=== PATIENT | female | born 1960 | race American Indian/Alaskan Native ===

== ENCOUNTER 2017-06-01 07:40 | Emergency (ER) | payer BC ==
[2017-06-01 08:10] VITALS: RESP 18; TEMP 98; O2SAT 100
--- NOTE | 2017-06-01 09:39 | ED PDOC ---
Arrival/HPI - General Chief Complaint: Allergic Reaction Time Seen by Provider: 06/01/17 08:28 Historian: Patient - History of Present Illness Narrative History of Present Illness (Text): 06/01/17 09:35 A 56 year old female, with no significant past medical history, presents to the emergency department complaining of swelling to right-side forehead and itchiness for 2-3 days. Patient reports 5 days ago, she used a hair dye, a different color than she normally uses. The next day she was normal but the following day, she began experiencing itchiness and redness of her scalp. 2 days ago she began to develop swelling to her right-side forehead. Patient denies of any fever, vision changes, nasal congestion, anaphylaxis, shortness of breath, or any other complaints. No PMD Time/Duration: < week (2-3 days) Symptom Onset: Sudden Symptom Course: Unchanged Activities at Onset: Rest, Light Past Medical History - Provider Review Nursing Documentation Reviewed: Yes - Infectious Disease Hx of Infectious Diseases: None - Reproductive Menopause: Yes - Psychiatric Hx Substance Use: No - Anesthesia Hx Anesthesia: No Family/Social History - Physician Review Nursing Documentation Reviewed: Yes Family/Social History: No Known Family HX Smoking Status: Current Some Days Smoker Hx Alcohol Use: Yes Frequency of alcohol use: Socially Hx Substance Use: No Allergies/Home Meds Allergies/Adverse Reactions: Allergies No Known Allergies Allergy (Verified 06/01/17 08:10) Review of Systems - Physician Review All systems were reviewed & negative as marked: Yes - Review of Systems Constitutional: absent: Fevers Eyes: absent: Vision Changes ENT: Other (no throat closing sensation). absent: Sinus Congestion Respiratory: absent: SOB Skin: Pruritis (scalp and right-side forehead), Other (erythema of scalp, swelling of right forehead) Physical Exam Vital Signs Reviewed: Yes Vital Signs Temp Pulse Resp BP Pulse Ox 06/01/17 09:20 75 18 140/82 100 06/01/17 08:06 98 F 78 18 144/84 100 Temperature: Afebrile Blood Pressure: Normal Pulse: Regular Respiratory Rate: Normal Appearance: Positive for: Well-Appearing Pain Distress: None Mental Status: Positive for: Alert and Oriented X 3 - Systems Exam Head: Present: Swelling (right-side forhead), Other (urticarial rash right-side forhead and scalp) Pupils: Present: PERRL Extroacular Muscles: Present: EOMI Conjunctiva: Present: Normal Mouth: Present: Moist Mucous Membranes Neck: Present: Normal Range of Motion Respiratory/Chest: Present: Clear to Auscultation, Good Air Exchange. No: Respiratory Distress, Accessory Muscle Use Cardiovascular: Present: Regular Rate and Rhythm, Normal S1, S2. No: Murmurs Abdomen: Present: Normal Bowel Sounds. No: Tenderness, Distention, Peritoneal Signs Back: Present: Normal Inspection Upper Extremity: Present: Normal Inspection. No: Cyanosis, Edema Lower Extremity: Present: Normal Inspection. No: Edema Neurological: Present: GCS=15, CN II-XII Intact, Speech Normal Skin: Present: Warm, Dry, Normal Color. No: Rashes Psychiatric: Present: Alert, Oriented x 3, Normal Insight, Normal Concentration Medical Decision Making ED Course and Treatment: 06/01/17 09:52 Impression: 56 year old female with itchiness to scalp and swelling to forehead. Physical exam shows urticarial rash of right-side forehead, erythema of scalp. Differential Diagnosis included but are not limited to: Allergic reaction secondary to hair dye Plan: -- Pepcid -- Prednisone -- Patient already took Benadryl just prior to arrival. Patient is stable for discharge home with medications. She will make sure to not use that hair dye anymore. She says its happened once before but with a differenet color dye. - Medication Orders Current Medication Orders: Discontinued Medications Famotidine (Pepcid) 20 mg PO STAT STA Stop: 06/01/17 08:48 Last Admin: 06/01/17 09:06 Dose: 20 mg Prednisone (Prednisone Tab) 60 mg PO STAT STA Stop: 06/01/17 08:48 Last Admin: 06/01/17 09:06 Dose: 60 mg - Scribe Statement The provider has reviewed the documentation as recorded by the Naty Garcia Provider Scribe Attestation: All medical record entries made by the Scribe were at my direction and personally dictated by me. I have reviewed the chart and agree that the record accurately reflects my personal performance of the history, physical exam, medical decision making, and the department course for this patient. I have also personally directed, reviewed, and agree with the discharge instructions and disposition.] Disposition/Present on Arrival - Present on Arrival Any Indicators Present on Arrival: No History of DVT/PE: No History of Uncontrolled Diabetes: No Urinary Catheter: No History of Decub. Ulcer: No History Surgical Site Infection Following: None - Disposition Have Diagnosis and Disposition been Completed?: Yes Diagnosis: Allergic reaction Disposition: HOME/ ROUTINE Disposition Time: 09:10 Patient Plan: Discharge Condition: GOOD Discharge Instructions (ExitCare): Anaphylaxis (ED) Additional Instructions: Ms Celestin, thank you for letting us take care of you today. Your provider was Dr. Adamson. You were treated for Allergic Reaction. The emergency medical care you received today was directed at your acute symptoms. If you were prescribed any medication, please fill it and take as directed. It may take several days for your symptoms to resolve. Return to the Emergency Department if your symptoms worsen, do not improve, or if you have any other problems. Please contact your doctor or call one of the physicians/clinics you have been referred to that are listed on the Patient Visit Information form that is included in your discharge packet. Bring any paperwork you were given at discharge with you along with any medications you are taking to your follow up visit. Our treatment cannot replace ongoing medical care by a primary care provider (PCP) outside of the emergency department. Thank you for allowing the [facility] team to be part of your care today. If you had an X-Ray or CT scan: A Radiologist will review the ED reading if any change in treatment is needed we will contact you. If you had a blood, urine, or wound culture: It will take several days for the results, if any change in treatment is needed we will contact you. If you had an STI test: It will take 48 hours for the results. Please call after 1 week if you have not heard back. Prescriptions: DiphenhydrAMINE [Benadryl] 25 mg PO Q6 #30 cap Famotidine [Pepcid] 20 mg PO DAILY #20 tab predniSONE [predniSONE Tab] 40 mg PO DAILY #8 tab Referrals: PCP,NO [Primary Care Provider] - Follow up with primary Forms: [employer] (E[place]ian), WORK NOTE
[2017-06-01 09:40] VITALS: BP 140/82; PULSE 75
== END 2017-06-01 09:20 | disposition home or self-care (01) ==
LOC: ED 07:40
DX: T78.49XA Other allergy, initial encounter (principal); X58.XXXA Exposure to other specified factors, initial encounter